=== PATIENT | male | born 1945 | race American Indian/Alaskan Native ===

== ENCOUNTER 2018-01-27 07:35 | Day surgery (SDC) | payer MEDICARE, OTHER ==
[2018-01-27 08:24] VITALS: TEMP 97.9; O2SAT 100
[2018-01-27] MEDS ORDERED: Propofol 10 mg/ml Inj (20 ML) ONE (09:08)
[2018-01-27 11:06] VITALS: BP 121/80; PULSE 69; RESP 11
== END 2018-01-27 11:00 | disposition home or self-care (01) ==
LOC: C.ENDO 07:35
PROVIDERS: ATTEND Internal Medicine Gastroenterology
DX: Z12.11 Encounter for screening for malignant neoplasm of colon (principal); K62.9 Disease of anus and rectum, unspecified; K62.1 Rectal polyp; K64.8 Other hemorrhoids
CPT/HCPCS: 45380; 88305; J2001; J2704

== ENCOUNTER 2018-07-09 11:13 | Outpatient (CLI) | payer MEDICARE, OTHER | END 2018-07-09 11:14 | disposition home or self-care (01) | LOC: C.CTH 11:13 ==

== ENCOUNTER 2018-08-23 12:07 | Outpatient (CLI) | payer MEDICARE, OTHER | END 2018-08-23 12:08 | disposition home or self-care (01) | LOC: C.RADH 12:07 ==

== ENCOUNTER 2018-09-15 06:25 | Day surgery (SDC) | payer MEDICARE, OTHER ==
[2018-09-03 07:53] VITALS: BMI 24.3
[2018-09-15] MEDS ORDERED: cefTRIAXone 1 gm 1 GM/100 ML BAG IVPB ONE (07:38)
[2018-09-15] MEDS ORDERED: Lidocaine 2% Jelly (Uro-Jet) ONE (07:38)
[2018-09-15] MEDS ORDERED: HYDROmorphone 0.5 mg/0.5 ml ISec IVP PRN (07:39)
--- NOTE | 2018-09-15 13:34 | OP ---
PROCEDURE DATE: 09/15/2018 PREOPERATIVE DIAGNOSES: Gross hematuria, bladder wall lesion. POSTOPERATIVE DIAGNOSES: Gross hematuria, bladder wall lesion. PROCEDURE: Cystoscopy with bladder wall biopsies and fulguration. DESCRIPTION OF PROCEDURE: The patient was placed on the operating room table in a dorsal lithotomy position. He was given general anesthesia, the area of the groin was draped and prepped. Using a #21 cystoscope, I entered into the bladder atraumatically; however, there was immediate friable tissue that was bleeding. I selected several areas, 2 on the right and 1 on the left that appeared to be most denial management representative of what appears to be unusual tissue and I biopsied these areas and then I cauterized them. There is some residual hematuria, but it is not from any specific area, so I did not see any specific active blood vessel to cauterize. I did cauterize amply the areas that I biopsied. Once this was done, the specimens were sent for analysis. The patient then was taken from the operating room in good condition. Kalina Quan MD
[2018-09-15 14:21] VITALS: BP 128/89; PULSE 65; RESP 16; TEMP 97.9; O2SAT 97
== END 2018-09-15 14:18 | disposition home or self-care (01) ==
LOC: C.SDS 06:25 → MERGE 08:00 → C.SDS 14:18
PROVIDERS: ATTEND Urology
DX: N30.21 Other chronic cystitis with hematuria (principal)
CPT/HCPCS: 52204; 88305; J0696